=== PATIENT | female | born 1930 | race Caucasian/White ===

== ENCOUNTER 2016-08-04 01:10 | Inpatient (IN) | payer MEDICARE, BC ==
[~2016-08-04] VITALS: Ht 160 cm; Wt 75.3 kg
--- NOTE | ~2016-08-04 | ECH ---
Transthoracic Echocardiography Report (TTE) Demographics Patient Name SAUL BETTENCOURT Date of Study 08/05/2016 Patient Number [id number] Visit Number [id number] Date of 1930 Room Number 311 Accession Number [id number] Gender Female Age 85 year(s) Referring Albinjnenie Mckeon Ana Support Representative Arelis Diaz [facility] Physician Patti Mckeon Physician Interpreting Fabien Diaz MD Psychiatric Social Worker Physician Supervising Ordering Physician Fernando Mckeon MD/MLP Nurse Stress General Service Technician Conclusions Summary Technically adequate exam. The estimated left ventricular ejection fraction is 60%. Mild concentric left ventricular hypertrophy. The left atrium is mildly dilated by LA volume index measurement. Mild mitral regurgitation by color Doppler. There is mild aortic regurgitation by color Doppler. Moderate tricuspid regurgitation by color Doppler. There is moderate pulmonary hypertension. The pulmonary pressure (RVSP) is 50 mmHg. Trivial pulmonic valve regurgitation by color Doppler. Procedure Type of Study TTE procedure:Echo Complete SF. Procedure Date Date: 08/05/2016 Start: 08:21 AM Technical Quality: Adequate visualization Indications:Elevated Troponin. Additional Indications:elevate BNP Appropriate Use Criteria: 9 Height: 63 inches Weight: 149 pounds BSA: 1.71 m Rhythm: Within normal limits HR: 93 bpm BP: 129/90 mmHg M-Mode/2D Measurements LV Diastolic Dimension: 3.93 cm LV Systolic Dimension: 2.77 cm LV Septum Diastolic: 1.05 cm LV PW Diastolic: 1.03 cm AO Root Dimension: 2.34 cm Cardiac Output: 4.88 l/min LA Dimension: 3.38 cm Cardiac Index: 2.85 l/min*m RV Diastolic Dimension: 2.92 cm LA volume index: 36 ml/m LVOT: 1.89 cm LVOT VTI: 18.73 cm RV Base: 2.7 cm LV Stroke volume: 52.52 ml RV Mid: 2.2 cm LV Stroke volume index: 30.71 ml/m RV Length: 5.8 cm TAPSE: 2.9 cm Doppler Measurements AV Peak Velocity: 1.67 m/s MV Peak E-Wave: 0.7 m/s AV Peak Gradient: 11.16 mmHg MV Peak A-Wave: 0.88 m/s AV Mean Gradient: 5.97 mmHg MV E/A Ratio: 0.79 LVOT Peak Velocity: 1.38 m/s MV P1/2t: 59.3 msec AV Area (Continuity):1.8 cm AV P1/2t: 410.2 msec MV Deceleration Time: 219.6 msec TR Velocity:3.36 m/s MV Area (PHT): 3.71 cm TR Gradient:45.08 mmHg PV Peak Velocity: 1.01 m/s Estimated RAP:5 mmHg PV Peak Gradient: 4.06 mmHg Estimated RVSP: 50 mmHg Estimated PASP: 50.08 mmHg E' Septal Velocity: 0.09 m/s A' Septal Velocity: 0.11 m/s E' Lateral Velocity: 0.12 m/s A' Lateral Velocity: 0.16 m/s RA Area: 15.08 cm Findings Left Ventricle The left ventricle is normal in size . Mild concentric left ventricular hypertrophy. Diastolic assessment reveals normal relaxation. Right Ventricle Normal right ventricle structure and function. Left Atrium The left atrium is mildly dilated by LA volume index measurement. Right Atrium Normal right atrial size. Mitral Valve Normal mitral valve structure and function. Mild mitral regurgitation by color Doppler. Aortic Valve Normal aortic valve structure and function. There is mild aortic regurgitation by color Doppler. Tricuspid Valve Normal appearing tricuspid valve. Moderate tricuspid regurgitation by color Doppler. There is moderate pulmonary hypertension. The pulmonary pressure (RVSP) is 50 mmHg. Pulmonic Valve Normal pulmonic valve structure and function. Trivial pulmonic valve regurgitation by color Doppler. Pericardial Effusion No evidence of pericardial effusion. Miscellaneous Visualized portions of the aortic root and ascending aorta appear normal in size. Pleural Effusion No evidence of pleural effusion. Signature
--- NOTE | ~2016-08-04 | CO ---
ADMIT: 08/04/2016 RM/LOC: 311 [facility] MR#: [id number] [address] [address] RUTSAUL CRANE [address] [place] [address] Consultation SEX: F AGE: 85 : 1930 DATE OF CONSULTATION: 08/04/2016 ATTENDING PHYSICIAN: Bong Escobedo CONSULTING PHYSICIAN: Jason Sanchez MD REASON FOR CONSULTATION: Obstructing right ureteral calculus, right hydronephrosis, urinary tract infection, pyelonephritis, and sepsis. HISTORY OF PRESENT ILLNESS: The patient is a pleasant 85-year-old white female. Majority of history is obtained from daughter and as the patient is somewhat sedate and incoherent right now. The patient presented to outside facility yesterday at approximately 06:00 in the evening with right flank pain. During the course of that evaluation, CT scan demonstrated a 5 mm distal ureteral stone on the right with moderate to severe hydronephrosis. At that time, lactic acid was 6.8, white blood cell count was around 2000. Given the concern for sepsis, the patient was transferred over here for continued ICU monitoring and urologic intervention. Upon arrival to our facility, repeat labs were performed, serum chemistry study shows a creatinine of 1.4. White blood cell count 15.4. INR 1.7. Urine and blood cultures were pending. She has been administered Rocephin. She is also going to be started on vancomycin. The patient's states that recently she had been in her regular state of health. On Thursday, there was no unusual fevers or chills. She was complaining of some possible vague abdominal pain, but nothing severe, symptoms really started yesterday at approximately 06:00 p.m., prompting a visit to the emergency room up in [place]. The patient has had periodic urinary tract infection over the years, maybe at most one or two each year. She has never had an episode of pyelonephritis. There has been no hematuria. No obvious history of stone disease. The patient does have a history of left ureteral injury at the time of excision of ovarian cyst at the age of 28 this was repaired. does state that they know that her left kidney was slightly smaller than the right. I have spoken with Dr. Escobedo. The patient is currently being started on Levophed. She is not a good candidate for general anesthesia to facilitate stent placement. I think given the acuity and the critical nature of her situation, I would recommend decompression of the right collecting system with placement of a percutaneous nephrostomy tube. Risks and benefits have been discussed with the family to include complications with the procedure itself, bleeding, worsening, infection, potential need for secondary procedures to address the stone once the patient's clinical status is stabilized. They voiced understanding and wished to proceed at this time. PHYSICAL EXAMINATION: GENERAL: The patient is somnolent, does not provide any history. VITAL SIGNS: T-current is 100.8, blood pressure systolic 80s, heart rate in the one teens. Urine is clear. ABDOMEN: Soft. BACK: Mild right-sided costovertebral angle tenderness. ADMIT: 08/04/2016 RM/LOC: 311 [facility] MR#: [id number] [address] [place] [id number] SAUL BETTENCOURT [address] [place] [address] Consultation SEX: F AGE: 85 : 1930 LABORATORY DATA: As stated above. ASSESSMENT: Obstructing right ureteral calculus with associated urinary tract infection, pyelonephritis, hydronephrosis, and sepsis. Given the acuity of the situation and the fact that the patient is unstable for OR, I recommended placement of a percutaneous nephrostomy tube. The plan has been discussed with Dr. Escobedo as well as Dr. John, who will be placing the percutaneous nephrostomy tube. Dr. John is aware of the INR of 1.7, although, the patient is not on any anticoagulants at this time. PLAN: 1. Place a right-sided percutaneous nephrostomy tube. 2. Agree with broad-spectrum antibiotic coverage. 3. Once the patient's clinical status stabilizes, most likely we will reassess with a repeat renal colic CT scan. If the distal ureteral calculus is still present at that point, would consider ureteroscopy laser lithotripsy stent placement and removal of percutaneous nephrostomy tube. Jason Sanchez MD/ kayla JOB #: [id number] CC: Bong Escobedo, Attending Physician Mike Johnson, Family Physician
--- NOTE | 2016-08-04 07:05 | ER ---
ADMIT: 08/04/2016 RM/LOC: 311 [facility] MR#: [id number] [facility]#: [id number] [address] [address] SAUL BETTENCOURT [facility] [address] [place] [address] Emergency Room Report SEX: F AGE: 85 : 1930 DATE: 08/04/2016 CHIEF COMPLAINT: Right flank pain. HISTORY OF PRESENT ILLNESS: The patient is an 85-year-old female transferred from [facility] after presenting with 12-hour history of increasing right flank pain associated with nausea, fevers. Denies any significant dysuria or prior history of ureteral stone or pyelonephritis. CT at [place] showed obstructive uropathy right distal ureter with 5 mm stone and nonobstructive kidney stones, bilateral kidneys, 1+ leukocyte esterase, low white count. Given 1 g Rocephin IV piggyback after Dr. Johnson discussed case with Dr. Sanchez. PAST MEDICAL HISTORY: ILLNESSES: Type 2 diabetes, hypertension, kidney stones, UTI, ataxia, CVA, hyperlipidemia, diverticulosis, essential tremor, chronic low back pain, hypothyroidism, tubular adenoma. OPERATIONS: Appendectomy, hysterectomy, T and A, ureteral reconstruction, adhesiolysis. ALLERGIES: MULTIPLE, PLEASE SEE NURSE'S MAR. MEDICATIONS: Please see nurse's MAR. SOCIAL HISTORY: . Never smoked. No significant alcohol or illicit drugs. FAMILY HISTORY: Positive for abdominal aortic aneurysm in father. REVIEW OF SYSTEMS: A 12-point review of systems negative for all other systems, illnesses, or operations except as outlined above. PHYSICAL EXAMINATION: VITAL SIGNS: Temp 100.3, pulse 108, respirations 26, BP 116/77, SaO2 of 91%. Weight 74 kilos. GENERAL: Nontoxic, non-diaphoretic without jaundice or icterus. HEENT: Normocephalic. No evidence of epistaxis, rhinorrhea, or otorrhea. NECK: Supple without lymphadenopathy or thyromegaly. CHEST: Clear. Breath sounds equal. HEART: Tachycardic, regular without murmur, gallop, or edema. ABDOMEN: Soft, minimally tender right lower quadrant without mass or megaly. Bowel sounds hypoactive. BACK: Erect. No CVA tenderness. EXTREMITIES: No evidence of Homans sign, synovitis, or dermatitis. NEURO: EOMI. PERRLA. No difficulty speaking. Gait not assessed. MEDICAL DECISION MAKING: The patient is a difficult venous access though, two IVs were initiated as well as fluid bolus. Pressure has been maintained well throughout despite having lactic 6.4 in [place]. Chest x-ray, no acute findings. Reviewed CT that does confirm distal right ureteral stone with moderate hydroureter. WBC 15.4 left shift, platelets 111, creatinine 1.3. ADMIT: 08/04/2016 RM/LOC: 311 [facility] MR#: [id number] [address] [place] [phone] SAUL BETTENCOURT [address] [place] [address] Emergency Room Report SEX: F AGE: 85 : 1930 Lactic pending, procalcitonin pending. Blood cultures x2 pending. EKG shows sinus tachycardia without ST-T or Q-wave change. Chest x-ray, no acute findings. Discussed findings with Dr. Escobedo, who agreed and gave orders to nursing staff. DIAGNOSES: 1. Obstructive uropathy with pyelonephritis and distal right ureterolithiasis. 2. Moderate sepsis syndrome. RECOMMENDATION: Admit inpatient telemetry for Dr. Escobedo. ADMISSION AND DISCHARGE CONDITION: Fair. Chad Du MD/ kayla JOB #: [id number] CC: Bong Escobedo MD, Attending Physician Mike Johnson MD, Family Physician Milagro Callahan MD
--- NOTE | 2016-08-05 14:40 | CO ---
ADMIT: 08/04/2016 RM/LOC: 311 [facility] MR#: [id number] [address] [address] SAUL SUAREZ [address] [place] [address] Consultation SEX: F AGE: 85 : 1930 DATE OF CONSULTATION: 08/04/2016 ATTENDING PHYSICIAN: Bong Escobedo CONSULTING PHYSICIAN: Ankita Clark APRN TIME IN: 1540 hours. TIME OUT: 1625 hours. REASON FOR CONSULTATION: Supportive care consultation was requested by Dr. King for discussion of goals for care and code status. HISTORY OF PRESENT ILLNESS: Saul is a delightful 85-year-old, female with history of diabetes as well as left renal issues from a ureteral injury that occurred during ovarian surgery many years ago. She has been living in [place] with her , however, presented to the [facility] last evening complaining of severe right-sided pain. Evaluation discovered a right ureteral stone with severe hydronephrosis. She met sepsis criteria. She was transferred to [facility] for further evaluation and treatment. Today, she did go to for nephrostomy tube placement. Postoperatively, she has been experiencing severe pain as well as increasing oxygen and is currently on 15 L non-rebreather mask. The patient's nurse did have a discussion with the patient and family regarding their wishes should the oxygen needs continued to rise. She did ask the patient and family about BiPAP and intubation. There were some questions regarding this. Therefore, Dr. King did request the supportive care consultation be obtained to meet with the patient and family. In terms of advanced directives, the patient's next of kin medical decision maker is her , Chito Suarez, whose phone number is #[phone] and [phone]. We did not have any advanced directives on file. The patient is a full code status. Symptomatically, she is complaining of significant right-sided pain over the right lateral abdomen and flank. She states that her pain medication has relieved the pain somewhat. She denies other physical symptoms at this time. She does appear weak and slightly debilitated. PAST MEDICAL HISTORY: Diabetes mellitus, skin cancer, hypothyroidism, left kidney problems secondary to ureteral injury after an ovarian surgery, sciatica, essential tremor, ataxia, hypertension. PAST SURGICAL HISTORY: Hysterectomy, ovarian cystectomy, right total knee arthroplasty, cataract surgery, ureteral reconstruction, and adhesiolysis. ALLERGIES: THE PATIENT IS ALLERGIC TO PENICILLIN. CURRENT MEDICATIONS: Please see the patient's MAR for specific routes and ADMIT: 08/04/2016 RM/LOC: 311 [facility] MR#: [id number] [address] [address] SAUL [address]Z [address] [place] [address] Consultation SEX: F AGE: 85 : 1930 dosages. Her current medications are as follows: 1. Vancomycin. 2. Senokot. 3. Rocephin. 4. Benadryl. 5. Reglan. 6. Narcan. 7. Dilaudid. 8. Vitamin D. 9. Inderal. 10.Zestril. 11.Catapres. 12.Norvasc. 13.Symmetrel. 14.Normal saline. 15.Glutose. 16.Glucagon. 17.D5 normal saline. 18.D50. 19.NovoLog. 20.Nitro-Bid. 21.Levophed. 22.Morphine. 23.Maalox. 24.Tylenol. 25.Nitrostat. 26.Surfak. SOCIAL HISTORY: The patient is . She was living at home prior to admission. She does not use alcohol or tobacco. She is retired. FAMILY HISTORY: Her father is and had an AAA as well as lung cancer and heart failure. Her mother also had heart failure. FUNCTIONAL REVIEW: Prior to her hospital stay, she was living at home. She could perform ADLs independently but due to an essential tremor and ataxia, her reports that she spent a large portion of her day in bed. Her palliative performance scale prior to admission was around 60%. Currently, she is in bed. She is requiring pretty much total care. Her intake is reduced. She is tired. Her current palliative performance scale is 30%. REVIEW OF SYSTEMS: A 10-point review of systems was completed and other than those pertinent positives and negatives mentioned the HPI, it is negative. PHYSICAL EXAMINATION: GENERAL: The patient is examined in the bed. She is in no acute distress. VITAL SIGNS: Temperature 99.3, pulse 89, respirations 21, blood pressure 92/44, oxygen 93% on 10 L non-rebreather mask. ADMIT: 08/04/2016 RM/LOC: 311 [facility] MR#: [id number] [address] [place] [id number] SAUL SU[address]Z [address] [place] [address] Consultation SEX: F AGE: 85 : 1930 HEENT: Head is normocephalic. Pupils are 3 mm bilaterally and brisk. Oral mucosa pink and moist with fair dentition. NECK: Supple. RESPIRATORY: Respirations are equal and nonlabored. LUNGS: Diminished throughout. CARDIOVASCULAR: Rate rhythm regular without murmurs, rubs, or gallops. 1+ bilateral lower extremity edema noted. GASTROINTESTINAL: Soft and nontender. Bowel sounds are positive. GENITOURINARY: She does have a nephrostomy drain noted that is draining serosanguineous drainage. MUSCULOSKELETAL: Generalized weakness. No obvious joint deformities. NEUROLOGIC: Fatigued, but oriented x3. PSYCHIATRIC: Calm and cooperative. No agitation or delirium noted. IMPRESSION: 1. Physical debility. 2. Right abdominal/flank pain. 3. Malaise. 4. Fatigue. 5. Right ureteral stone. 6. Right hydronephrosis. 7. Pyelonephritis. 8. Sepsis. 9. Diabetes mellitus. 10.Palliative Care. 11.The patient is a full code. PLAN: 1. I was able to meet with the patient as well as her and daughter at the bedside. We reviewed her overall status and goals for the time ahead. She is hopeful for ongoing improvement through this acute illness. She understands that she is critically ill. We did discuss code status including the burden versus benefit of full code versus do not resuscitate/do not intubate status. The patient states that she would want to go through resuscitation including intubation; however, she would not want to be kept alive on a breathing machine long-term. Her states that this aligns with what she has stated previously. At this point, she directs full code status but agrees to ongoing discussions regarding goals for care pending her status in the time ADMIT: 08/04/2016 RM/LOC: 311 [facility] MR#: [id number] [address] [place] [phone] SAUL SUAREZ [address] [place] [address] Consultation SEX: F AGE: 85 : 1930 ahead. 2. The patient's pain is currently being controlled with Dilaudid and she seems to have some relief from this. I will defer to PCP for medication management of her pain. 3. We will continue to follow along in the care of this patient, assist with goals for care pending her status. 4. We would like to thank Dr. Knig for the invitation to participate in this patient's care. Total consultation time was 45 minutes from 1540 hours to 1625 hours with 20 minutes from 1545 hours to 1610 hours spent [id number] with the patient and family discussing goals for care and providing counseling and support. We will continue to follow. Ankita Clark APRN/ kayla JOB #: [id number] CC: Bong Escobedo, Attending Physician Mike Johnson, Family Physician
--- NOTE | 2016-08-13 15:07 | CO ---
ADMIT: 08/04/2016 RM/LOC: 311 [facility] MR#: [id number] [address] [address] RUT SAUL D [address] [place] [address] Consultation SEX: F AGE: 85 : 1930 DATE OF CONSULTATION: 08/04/2016 ATTENDING PHYSICIAN: Bong Escobedo CONSULTING PHYSICIAN: Cam Armstrong MD REASON FOR CONSULTATION: Elevated BNP, shortness of breath, and edema on chest x-ray. HISTORY OF PRESENT ILLNESS: The patient is a pleasant 85-year-old, female with no known history of coronary artery disease. We have seen her in the past in her hometown of [place] for hypertension. Medications were adjusted and as of June, she was to come back on a p.r.n. basis. Unfortunately yesterday, she developed some abdominal flank discomfort on the right. This became so severe, she ended up in the emergency room at [place]. She was diagnosed with a right ureteral stone along with hydronephrosis. There was concern for sepsis and therefore, she was transferred down to [facility] for further evaluation and treatment. She denies any chest pain, tightness, or heaviness. She does have some shortness of breath right now, but has not had any at home. She states this comes and goes, but is very mild. She has some left lower extremity edema. This is chronic for her and no worse due to a history of a DVT in the past. She denies any palpitations. She denies any recent syncope or presyncope. She has had some fevers while here. PAST MEDICAL HISTORY: Hypertension, type 2 diabetes, history of DVT, cataracts, essential tremor, sciatica, mild mitral regurgitation per echocardiogram, history of skin cancer, and hypothyroidism. FAMILY HISTORY: Positive for dad, who had abdominal aortic aneurysm and lung cancer and CHF. Mom had CHF. Mom also had a history of a CVA. Dad also had a history of a CVA. She had no history of premature coronary artery disease in her family. SOCIAL HISTORY: She is . Her and daughter in the room with her today and her sister was in also. 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 No history of illicit drug use, alcohol use, or tobacco abuse. REVIEW OF SYSTEMS: A 10-point review of systems reviewed and negative except per HPI and past medical history. MEDICATIONS: That she is taking include: 1. Amlodipine 10 mg daily. 2. Aspirin 81 mg daily. 3. B complex daily. 4. Clonidine 0.2 mg b.i.d. 5. Vitamin D3 at 2000 international units daily. 6. Furosemide 20 mg as needed. 7. Hydrocodone 7.5 mg half tab every four hours. ADMIT: 08/04/2016 RM/LOC: [address] [place] [address] MR#: [id number] [address] [place] [id number] SAUL BETTENCOURT [address] [place] [address] Consultation SEX: F AGE: 85 : 1930 8. Lisinopril 40 mg daily. 9. Metformin ER 500 mg b.i.d. 10.Senna Lax daily. 11.Propranolol ER 60 mg daily. 12.Spironolactone 12.5 mg daily. ALLERGIES: SHE IS ALLERGIC TO CIPRO, ELAVIL, ERYTHROMYCIN, FELDENE, GUAIFENESIN, MACRODANTIN, MEVACOR, MOTRIN, NALFON, NEURONTIN, PAMELOR, PENICILLIN, PRAVACHOL, SULFA, ZANTAC, AND ZELNORM. PAST SURGICAL HISTORY: Hysterectomy, ovarian cystectomy, right total knee arthroplasty, cataract surgery, ureteral reconstruction and adhesiolysis. Surgical history taken from old records. PHYSICAL EXAMINATION: Per Dr. Armstrong: VITAL SIGNS: Temp 99.3, pulse 89, respirations 21, blood pressure 92/44, O2 saturation 93%. GENERAL: Moderate distress. SKIN: [place], warm and dry. EYES: Sclerae clear. No xanthelasmas. ENT: On non-rebreather for oxygen, dry mucous membranes. CHEST: Respirations are even and unlabored. Lungs, coarse breath sounds. HEART: Regular rate and rhythm. Normal S1, S2. No murmurs, rubs or gallops. ABDOMEN: Obese and tender. MUSCULOSKELETAL: Gait is normal. EXTREMITIES: Mild edema bilaterally. PSYCHIATRIC: Alert and oriented. Mood and affect are appropriate. DIAGNOSTICS: Echocardiogram has been ordered, but has not yet been done. ProBNP of 33,271. Chest x-ray shows mild cardiomegaly with mild central pulmonary vascular congestion, possible mild left basilar atelectasis or developing small left-sided pleural effusion. Lactic acid is 5.4, INR is elevated at 1.7. Sodium of 142, potassium 3.3 with a chloride of 112, carbon dioxide 15, BUN of 40, glucose 233, creatinine 1.4. Calcium 8.1, mag of 1.3. CK of 44, MB of 0.6 with troponin of 0.132, CRP of 1.41. Blood cultures were positive for gram negative rods. ADMIT: 08/04/2016 RM/LOC: 311 [facility] MR#: [id number] [address] [place] [phone] SAUL BETTENCOURT [address] [place] [address] Consultation SEX: F AGE: 85 : 1930 ASSESSMENT: Per Dr. Armstrong: 1. Sepsis. 2. Bacteremia. 3. History of hypertension. 4. Diabetes. 5. Acute renal failure. PLAN: Per Dr. Armstrong. I agree with full supportive measures. Her recent echocardiogram showed a normal ejection fraction. I agree with IV fluid and pressors and we will continue to follow. We will continue to monitor symptoms and diagnostics, amend our plan accordingly. Thank you for allowing us to participate in the care of this patient. HARSH Herrera / Cam Armstrong MD / kayla JOB #: [id number] CC: Bong Escobedo, Attending Physician Mike Johnson, Family Physician
[2016-08-14] MEDS ORDERED: LASIX DPS20 MG PO (10:33)
[2016-08-14] MEDS ORDERED: CATAPRES-DPS0.2 MG PO (10:33)
[2016-08-14] MEDS ORDERED: NORVASC DPS10 MG PO (10:33)
[2016-08-14] MEDS ORDERED: ASA CHILDREN'S81 MG PO (10:33)
[2016-08-14] MEDS ORDERED: SYMMETREL-DPS100 MG PO (10:33)
[2016-08-14] MEDS ORDERED: LISINOPRIL40 MG PO (10:34)
[2016-08-14] MEDS ORDERED: NORCO 7.5-3251 EACH PO (10:34)
[2016-08-14] MEDS ORDERED: GLUCOPHAGE-DPS500 MG PO (10:34)
[2016-08-14] MEDS ORDERED: INDERAL-DPS40 MG PO (10:35)
[2016-08-14] MEDS ORDERED: SENOKOT DPS8.6 MG PO (10:36)
[2016-08-14] MEDS ORDERED: SPIRONOLACTONE50 MG PO (10:36)
[2016-08-14] MEDS ORDERED: VITAMIN B COMP1 EACH PO (10:37)
[2016-08-14] MEDS ORDERED: XARELTO15 MG PO (10:37)
[2016-08-14] MEDS ORDERED: VITAMIN D-32000 UNI1 PO (10:37)
[2016-08-14] MEDS ORDERED: LORTAB 7.5-3251 EACH PO (10:38)
[2016-08-14] MEDS ORDERED: LEVAQUIN DPS500 MG PO (10:38)
[2016-08-14] MEDS ORDERED: TRIMETHOPRIM100 MG PO (10:38)
[2016-08-14] MEDS ORDERED: MYCELEX TROCHE10 MG PO (10:39)
[2016-08-14] MEDS ORDERED: PYRIDIUM100 MG PO (10:39)
--- NOTE | 2016-08-30 11:46 | HP ---
ADMIT: 08/04/2016 RM/LOC: 311 [facility] MR#: [id number] [address] [address] YULIYA BETTENCOURTJENNIFER Perez [address] [place] [id number] History and Physical SEX: F AGE: 85 : 1930 DATE OF SERVICE: CHIEF COMPLAINT: Right-sided pain. 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 She states that she felt fine until approximately noon yesterday when she started having pain on her right side. It worsened throughout the day to the point where she just could not stand it, went to the emergency room, where she was diagnosed with a right ureteral stone and sepsis, was subsequently transferred to [facility] for further workup and stabilization. Apparently, Dr. Johnson had already called and consulted with Dr. Callahan, who is planning on seeing the patient this a.m. She does have kidney problems previously. In fact, she states that her left kidney is smaller than the right and was apparently related to some sort of complication during an ovarian cystectomy and has had ureteral reconstruction on that side. She does occasionally get bladder infections and has had one in the not too distant future, but her could not remember exactly when. PAST MEDICAL HISTORY: Remarkable for diabetes mellitus, skin cancer, hypothyroidism, left kidney problems, sciatica, essential tremor, ataxia, hypertension. PAST SURGICAL HISTORY: Include hysterectomy, ovarian cystectomy, right total- knee arthroplasty, cataract surgery, ureteral reconstruction and adhesiolysis. CURRENT MEDICATIONS: Include: 1. Amlodipine 10 mg daily. 2. Aspirin 81 mg daily. 3. B complex daily. 4. Clonidine 0.2 mg b.i.d. 5. Vitamin D3 at 2000 international units daily. 6. Furosemide 20 mg as needed. 7. Hydrocodone 7.5 mg half tab every 4 hours. 8. Lisinopril 40 mg daily. 9. Metformin ER 500 mg b.i.d. 10.Senna Lax daily. 11.Propranolol ER 60 mg daily. 12.Spironolactone 12.5 mg daily. ALLERGIES AND INTOLERANCES: Include Cipro, Elavil, erythromycin, Feldene, guaifenesin AC, Macrodantin, Mevacor, Motrin, Nalfon, Neurontin, Pamelor, penicillin, Pravachol, sulfa, Zantac, and Zelnorm. FAMILY HISTORY: Father is , had abdominal aortic aneurysm, lung cancer, and CHF. Mother with CHF. SOCIAL HISTORY: Does not smoke or drink alcohol. She is retired. ADMIT: 08/04/2016 RM/LOC: 311 [facility] MR#: [id number] [address] [address] SAUL BETTENCOURT [address] [place] [address] History and Physical SEX: F AGE: 85 : 1930 REVIEW OF SYSTEMS: GENERAL: She has had fever and chills. HEENT: No headaches, blurred vision, double vision. CARDIAC: No chest pains. PULMONARY: No shortness of breath. GASTROINTESTINAL: No nausea, vomiting. : No dysuria, urgency, or frequency. ENDOCRINE: No polyuria or polydipsia. PSYCH: No depression. All others are negative. OBJECTIVE: VITAL SIGNS: Blood pressure is 133/83, pulse 106, respirations 30, temp is 101. GENERAL: She is in no acute distress. She is alert, oriented. EYES: Pupils are reactive. Conjunctivae are clear. NECK: Soft and supple. LUNGS: Clear to auscultation with normal respiratory effort. HEART: Regular rate and rhythm. ABDOMEN: Soft. It is exquisitely tender in the right colic gutter. Some right CVA tenderness also noted. EXTREMITIES: No cyanosis, no clubbing. No significant edema. SKIN: No rashes. NEUROLOGIC: Cranial nerves II through XII are grossly intact except for the essential tremor. LAB AND X-RAY DATA: Of course, the CT scan shows a right ureteral stone. Lactic acid was 4.0. Sodium 142, potassium 3.3, chloride 112, CO2 of 15, BUN 40, creatinine 1.4, glucose 233, calcium 8.1, phosphorus 1.7. Total bilirubin is 0.5, total protein 6.4, albumin 3.1, alkaline phosphatase 104, AST 55, ALT 38, magnesium 1.3, CK 44, MB 0.6, relative index 1.4. Troponin I is 0.132, CRP was 1.41, INR is 1.71, procalcitonin is 126.56. White count 15,400. Hemoglobin 14.3, platelets 111,000. ASSESSMENT: ADMIT: 08/04/2016 RM/LOC: 311 [facility] MR#: [id number] [address] [place] [address] SAUL BETTENCOURT [address] [place] [address] History and Physical SEX: F AGE: 85 : 1930 1. Right ureteral stone. 2. Sepsis. 3. Acute kidney injury. 4. Hypokalemia. 5. Hypomagnesemia. 6. Hypertension. 7. Essential tremor. PLAN: We will admit to the ICU per sepsis protocol, has already had her fluid resuscitation done in the emergency room. Dr. Callahan has already added Rocephin. We will broaden coverage with vancomycin until we get her cultures back and we will continue IV fluids and wait for Urology input. Bong Escobedo MD/ kayla JOB #: [id number] CC: Bong Escobedo, Attending Physician Mike Johnson, Family Physician
--- NOTE | 2016-09-02 10:07 | OR ---
ADMIT: 08/04/2016 RM/LOC: 630 [facility] MR#: [id number] [facility]#: [id number] [address] [address] RUTSAUL CRANE [address] [place] [address] Operative/Delivery Room Report SEX: F AGE: 85 : 1930 SURGERY DATE: 08/12/2016 SURGEON: Jason Sanchez MD PREOPERATIVE DIAGNOSES: 1. Right ureteral calculus, status post percutaneous nephrostomy tube. 2. Urinary tract infection, pyelonephritis, and sepsis are resolving. POSTOPERATIVE DIAGNOSES: 1. Right distal ureteral calculus which she passed spontaneously into the bladder. 2. Urinary tract infection, pyelonephritis, and sepsis-resolving. PROCEDURE: 1. Cystoscopy with retrieval of stone from bladder. 2. Right retrograde pyelogram. 3. Right ureterorenoscopy. 4. Right ureteral stent placement. 5. Removal of right-sided percutaneous nephrostomy tube. ANESTHESIA: General. INDICATIONS: The patient is a white female, who presented with severe sepsis, underwent percutaneous nephrostomy tube. She has improved clinically. She presents today for definitive management of the stone as well as removal of percutaneous nephrostomy tube. PROCEDURE IN DETAIL: The patient was taken to OR #5, placed on the table in supine position. After adequate anesthesia, transferred to dorsal lithotomy position, prepped and draped in the usual fashion. A time-out was taken for the patient's name, date of , planned procedure, preop antibiotics, and allergies. A 22-Lithuanian cystoscope was advanced to the level of bladder. There was some catheter trauma along the posterior wall. Urethra was unremarkable. Ureteral orifice was visualized in all positions. Just outside the right ureteral orifice is a stone, this was retrieved and sent for stone analysis. It was consistent with spontaneous passage of her ureteral calculus into the bladder. An 8-Lithuanian cone-tipped catheter was used to create a retrograde pyelogram. The ureter is smooth. There was no significant hydronephrosis. Caliceal structures were well delineated. At this point, an angle tip Glidewire was advanced to the upper collecting system. Once this was accomplished, I did ask Nursing to remove the percutaneous nephrostomy tube which was done without difficulty. At this point, I did go ahead and secured the guidewire as a safety wire. Using a secondary guidewire in a train-track technique, a semirigid ureteroscope was advanced into the distal ureter. This was advanced all the ADMIT: 08/04/2016 RM/LOC: 630 [facility] MR#: [id number] [address] [address] SAUL BETTENCOURT [address] [place] [address] Operative/Delivery Room Report SEX: F AGE: 85 : 1930 [address] to the ureteropelvic junction. The scope was withdrawn slowly. There was some inflammation through the distal ureter, where the stone had likely been sitting at the time of diagnosis. There were no other stones noted. I did leave the secondary guidewire indwelling and a flexible ureteroscope was advanced over the indwelling guidewire into the upper collecting system. Caliceal structures were individually identified and inspected. No additional stone debris was noted. The percutaneous nephrostomy tube tract was noted, and there was no evidence of bleeding. The scope was slowly withdrawn over the entire course of the ureter and no additional findings aside from distal ureteral inflammation was noted. I did elect to place a stent. I felt that this would help nephrostomy tube tract close more quickly, and I was somewhat concerned about adequate drainage of the collecting system with inflammation in the distal ureter. The indwelling safety wire was back-loaded through the cystoscope. Cystoscope was advanced to the level of bladder. Under direct fluoroscopic visualization, a 6-Lithuanian, 24 cm double-J stent was placed. With the removal of guidewire, we had a nice curl within the renal pelvis and nice curl within the urinary bladder. At this point, the bladder was decompressed. Scope was withdrawn. The patient was taken out of the dorsal lithotomy position and extubated uneventfully and transferred to recovery room in stable condition. She will be transferred back to the floor for continued inpatient management. If doing well, probably could go home tomorrow. Jason Sanchez MD/ kayla JOB #: [id number] CC: Bong Escobedo, Attending Physician Mike Johnson, Family Physician
--- NOTE | 2016-09-15 16:45 | CO ---
ADMIT: 08/04/2016 RM/LOC: 311 [facility] MR#: [id number] [address] [address] SAUL BETTENCOURT [address] [place] [address] Consultation SEX: F AGE: 85 : 1930 DATE OF CONSULTATION: 08/08/2016 ATTENDING PHYSICIAN: Bong Escobedo CONSULTING PHYSICIAN: Jeanine Lin MD REASON FOR CONSULTATION: Hypoxemia. HISTORY OF PRESENT ILLNESS: The patient is a pleasant 85-year-old female, who was admitted with severe sepsis and urinary tract infection. She was also found to have DVT in her legs. In the process of fluid resuscitation, she has developed some fluid overload and Cardiology is following, and has been diuresing. She is requiring oxygen between 3 to 6 L but is quite comfortable. There is no prior history of COPD, smoking, or chronic lung disease such as asthma or recurrent pneumonias. She currently has no chest pain or cough. No sputum production. She has no fevers, chills, or sweats currently. Her only complaint currently is of some mild abdominal pain. 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 Arterial blood gases did not reveal any CO2 elevation. Chest x-ray shows some atelectasis and small pleural effusions. With her DVT, a CT angiogram of the chest was performed and this did not reveal any evidence of pulmonary emboli, but did reveal fairly significant bilateral lower lobe atelectasis with some small pleural effusions and a suggestion of fluid overload. Currently, she is in bed comfortable, no significant dyspnea, but still complains of some abdominal pain. There are no fevers, chills, or sweats currently. PAST MEDICAL HISTORY: 1. Hypertension. 2. Type 2 diabetes. 3. History of DVT. 4. Cataracts. 5. Essential tremor. 6. Mild mitral regurgitation. 7. Skin cancer. 8. Hypothyroidism. 9. Sciatica. SURGICAL HISTORY: Includes: 1. Ovarian cystectomy. 2. Hysterectomy. 3. Total knee on the right. 4. Ureteral reconstruction. 5. Cataracts surgery. FAMILY HISTORY: Reviewed. Dad, abdominal aortic aneurysm, lung cancer, CHF. Mom has a history of CVA as well as dad. SOCIAL HISTORY: . Nonsmoker. 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 MEDICATIONS: Medications currently from home are reviewed and current ADMIT: 08/04/2016 RM/LOC: 311 [facility] MR#: [id number] [address] [address] ASUL BETTENCOURT [address] [place] [address] Consultation SEX: F AGE: 85 : 1930 medicines are reviewed from the chart. ALLERGIES: CIPRO, ELAVIL, ERYTHROMYCIN, FELDENE, GUAIFENESIN, MACRODANTIN, MEVACOR, MOTRIN, NALFON, NEURONTIN, PAMELOR, PENICILLIN, PRAVACHOL, SULFA, ZANTAC, AND ZELNORM. REVIEW OF SYSTEMS: Ten-point was reviewed without positive except the HPI. PHYSICAL EXAMINATION: VITAL SIGNS: Temperature 99, pulse 80, respirations 20, blood pressure 110/70. HEENT: Within normal limits. NECK: No JVD or bruits. HEART: Regular rate. LUNGS: Bilateral rales at the bases. ABDOMEN: Soft. Bowel sounds positive. Nontender and nondistended. No organosplenomegaly. LABORATORY TESTING: Chest x-ray and CT angiogram as reviewed above. CBC; white count is 14,100, hemoglobin 12.6, and platelets were 111,000. Basic metabolic panel was within normal limits except for an elevated glucose. IMPRESSION: 1. Hypoxemia. I think this is multifactorial and includes bilateral basilar atelectasis which is fairly significant and contributed by her underlying abdominal pain and splinting. She has incentive spirometry, but I would like to add the EzPAP at least for the next 24 to 48 hours to see if we can help wean her oxygen. In addition, she has fluid overload and she is being diuresed. That will continue. 2. She has sepsis urinary tract, which is resolved. She had significant elevated lactic acid and had some fluid resuscitation. 3. Abdominal pain. Thank you for having me see her. We will continue to follow with you and begin therapies as noted. Jeanine Lin MD/ kayla JOB #: [id number] CC: Bong Escobedo, Attending Physician Mike Johnson, Family Physician
--- NOTE | 2016-10-12 07:44 | DS ---
ADMIT: 08/04/2016 RM/LOC: 630 [facility] MR#: [id number] ACC#: [id number] [address] [address] SAUL BETTENCOURT [address] [place] [address] Discharge Summary SEX: F AGE: 85 : 1930 ADMISSION DATE: 08/04/2016 DISCHARGE DATE: 08/13/2016 FINAL DIAGNOSES: 1. Right ureteral stone. 2. Severe sepsis secondary to E. (Escherichia) coli and UTI/pyelonephritis secondary to E. coli. 3. Acute kidney injury. 4. Hypokalemia. 5. Hypomagnesemia. 6. Hypertension. 7. Essential tremor. 8. UTI (urinary tract infection)/pyelonephritis. 9. Acute hypoxic respiratory failure. 10.Left lower extremity DVT (deep venous thrombosis). 11.Thrombocytopenia. 12.Hyponatremia. REASON FOR ADMISSION: This is an 85-year-old white female, who was transferred from [facility] for sepsis and right ureteral stone. HOSPITAL COURSE: She was admitted on 08/04/2016, started on IV Rocephin, morphine for pain control. We did blood cultures, urine culture. Her potassium was low; this was replaced through the IV. Also IV Vanco. She was admitted to the ICU because of her severe sepsis. She was hydrated with IV fluids. Urology was consulted. 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 Because of her significant right ureteral obstruction and tenuous status, we did consult Interventional Radiology, who placed a right percutaneous nephrostomy tube on 08/04/2016. Lactic acid was up to 5.4. Supportive Care was consulted. Family and patient wished to be full code. She was hydrated aggressively with IV fluids and blood pressure was maintained with pressors. Due to respiratory failure, she was subsequently placed on BiPAP. On 08/05 she was hemodynamically stable. Sats were better on BiPAP. On 08/06, she was on simple mask, O2 sats were 92%. We did start IV Lasix, we held her IV fluids. Her potassium was a little bit low, this was replaced orally. Her blood pressure had improved. On 08/07 looking a little better, still on O2 which was not her baseline. We added some IV Zithromax and incentive spirometer as well as DuoNeb treatments. She did have a left lower extremity DVT and was started on Lovenox subcu b.i.d. We subsequently discontinued her Vanco and her Zithromax, and she were placed on IV Levaquin. On 08/08 she did not really tolerate the BiPAP very well. Her sats were okay on 6 L per nasal cannula so we did discontinue the BiPAP. We added some Levemir and sliding- scale insulin. Pulmonology was consulted due to ongoing oxygen requirement. Cardiology had signed off. They recommended nebulizer treatments with EzPAP q.4 hours. She was transferred to PCU status. Supportive Care signed off. 08/09 she was down to 2 L per nasal cannula, doing much better. She had some thrush, which we treated with Mycelex Lauryn. 08/10 she was placed to telemetry. We continued to wean her O2. Her IV Lasix was discontinued. It was changed to p.o. Her Dilaudid was weaned off. She was kept n.p.o. after ADMIT: 08/04/2016 RM/LOC: 630 [facility] MR#: [id number] [address] [address] SAUL BETTENCOURT [address] [place] [address] Discharge Summary SEX: F AGE: 85 : 1930 midnight. 04/10 okay night, still in a lot of pain in the right side. On 08/12 still some pain, no new complaints, she slept okay. She underwent stent placement and ureteroscopy stone retrieval. The stone had passed into the bladder already. On 08/17 she still had some right-sided pain but better. She slept okay. We switched her over to Xarelto 15 mg b.i.d. Pulmonology felt she was stable and signed off and felt stable for discharge later that day. DISCHARGE INSTRUCTIONS: 1. Catapres 0.2 mg b.i.d. 2. Inderal LA 60 mg b.i.d. 3. Mycelex lauryn 10 mg 5 times daily. 4. Norvasc 10 mg daily. 5. Amantadine 100 mg b.i.d. 6. Vitamin D 1000 units 2 tabs daily. 7. Zestril 40 mg daily. 8. Lortab 7.5 mg 1-2 q.4 hours p.r.n. 9. Pyridium 190 mg t.i.d. p.r.n. 10.Aspirin 81 mg daily. 11.Amlodipine 10 mg daily. 12.Furosemide 20 mg daily p.r.n. 13.Lisinopril 40 mg daily. 14.Metformin 500 mg b.i.d. 15.Propranolol 60 mg b.i.d. 16.Senna 50 mg at bedtime. 17.Spironolactone 25 mg daily. 18.Vitamin B complex daily. 19.Xarelto 15 mg b.i.d. for 3 weeks then 20 mg daily. 20.Levaquin 500 mg a day for 7 days. Follow up with her primary care provider in [place] in 1 week. Follow up with Urology per their wishes. Bong Escobedo MD/ john JOB #: [id number] CC: Bong Escobedo MD, Attending Physician Mike Johnosn MD, Family Physician
== END 2016-08-13 15:30 | disposition home health service (06) | DRG 871 ==
LOC: ER 01:10 → 3ICU 02:10 → 6PED 02:10 → 3ICU 04:50 → 6PED 08-10 11:09
PROVIDERS: ADMIT Family Medicine
PROC: 0T9130Z Drainage of Left Kidney with Drainage Device, Percutaneous Approach (ICD-10-PCS; principal; 2016-08-04)
PROC: 0T768DZ Dilation of Right Ureter with Intraluminal Device, Via Natural or Artificial Opening Endoscopic (ICD-10-PCS; 2016-08-12)
PROC: BT1D1ZZ Fluoroscopy of Right Kidney, Ureter and Bladder using Low Osmolar Contrast (ICD-10-PCS; 2016-08-12)
PROC: 0TP5X0Z Removal of Drainage Device from Kidney, External Approach (ICD-10-PCS; 2016-08-12)
PROC: 0TCB8ZZ Extirpation of Matter from Bladder, Via Natural or Artificial Opening Endoscopic (ICD-10-PCS; 2016-08-12)
DX: A41.51 Sepsis due to Escherichia coli [E. coli] (principal); J96.01 Acute respiratory failure with hypoxia; N17.9 Acute kidney failure, unspecified; I50.31 Acute diastolic (congestive) heart failure; E87.0 Hyperosmolality and hypernatremia; D69.6 Thrombocytopenia, unspecified; E83.42 Hypomagnesemia; I82.542 Chronic embolism and thrombosis of left tibial vein; N13.6 Pyonephrosis; N20.2 Calculus of kidney with calculus of ureter; J98.11 Atelectasis; E11.9 Type 2 diabetes mellitus without complications; R65.20 Severe sepsis without septic shock; I51.7 Cardiomegaly; I34.0 Nonrheumatic mitral (valve) insufficiency; I10 Essential (primary) hypertension; R09.02 Hypoxemia; B37.9 Candidiasis, unspecified; R27.0 Ataxia, unspecified; B96.20 Unspecified Escherichia coli [E. coli] as the cause of diseases classified elsewhere; M54.30 Sciatica, unspecified side; E78.5 Hyperlipidemia, unspecified; E87.6 Hypokalemia; K57.90 Diverticulosis of intestine, part unspecified, without perforation or abscess without bleeding; G25.0 Essential tremor; M54.5 Low back pain; G89.29 Other chronic pain; E03.9 Hypothyroidism, unspecified; Z85.828 Personal history of other malignant neoplasm of skin; Z96.651 Presence of right artificial knee joint; Z79.82 Long term (current) use of aspirin; Z79.84 Long term (current) use of oral hypoglycemic drugs; Z86.718 Personal history of other venous thrombosis and embolism; Z87.440 Personal history of urinary (tract) infections

== ENCOUNTER 2016-09-25 08:09 | Day surgery (SDC) | payer MEDICARE, BC ==
[~2016-09-25] VITALS: Ht 160 cm; Wt 64.6 kg
[~2016-09-25 08:09] MED LIST: ASA CHILDREN'S81 MG PO; CATAPRES-DPS0.2 MG PO; GLUCOPHAGE-DPS500 MG PO; INDERAL-DPS40 MG PO; LASIX DPS20 MG PO; LEVAQUIN DPS500 MG PO; LISINOPRIL40 MG PO; LORTAB 7.5-3251 EACH PO; MYCELEX TROCHE10 MG PO; NORCO 7.5-3251 EACH PO; NORVASC DPS10 MG PO; PYRIDIUM100 MG PO; SENOKOT DPS8.6 MG PO; SPIRONOLACTONE50 MG PO; SYMMETREL-DPS100 MG PO; TRIMETHOPRIM100 MG PO; VITAMIN B COMP1 EACH PO; VITAMIN D-32000 UNI1 PO; XARELTO15 MG PO
--- NOTE | 2016-10-28 06:58 | OR ---
ADMIT: 09/25/2016 RM/LOC: [facility] MR#: [id number] [facility]#: [id number] [address] [address] SAUL BETTENCOURT [address] [place] [address] Operative/Delivery Room Report SEX: F AGE: 85 : 1930 SURGERY DATE: 09/25/2016 SURGEON: Duke Bill MD PREOPERATIVE DIAGNOSES: Abdominal pain and history of colon polyps. POSTOPERATIVE DIAGNOSES: 1. Normal appearing upper endoscopy. 2. Scattered sigmoid diverticula and small adenomatous appearing polyp in the hepatic flexure region. PROCEDURE PERFORMED: 1. EGD with biopsies. 2. Colonoscopy with cold biopsy removal of polyp in the hepatic flexure region. ANESTHESIA: Sedation. ESTIMATED BLOOD LOSS: None. DESCRIPTION OF PROCEDURE: After appropriate informed consent was obtained, the patient was brought to the endoscopy suite. IV sedation was provided. A well-lubricated endoscope was introduced and passed down the esophagus. The proximal and mid esophagus appeared normal. Distal esophagus showed no evidence of stricture or narrowing. The scope was advanced into the stomach. The gastric mucosa appeared normal throughout. The pylorus was intubated. Duodenal bulb, second and third portions of the duodenum appeared normal. The scope was then pulled back into the stomach, retroflexed revealing no hiatal hernia from below. No proximal gastritis or mass. Several biopsies were taken in the stomach. The stomach was then deflated and scope withdrawn without apparent complications. The patient tolerated the procedure well. I then proceeded with colonoscopy. Rectal exam revealed some mild hemorrhoids. No rectal masses. The scope was introduced and passed through the entire length colon. She had a very good prep. She did have some scattered sigmoid diverticula. The ileocecal valve and appendiceal orifice appeared normal. The scope was slowly and carefully withdrawn on the way out. At the hepatic flexure was a small adenomatous polyp, I removed in piecemeal fashion with several bites of cold biopsy forceps. That polyp removed. The scope was then withdrawn back down to the rectum, retroflexed revealing no rectal masses, just mild internal hemorrhoids. The patient tolerated the procedure well and was taken to the recovery room in stable condition. Duke Bill MD/ kayla JOB #: [id number] CC: Duke Bill, Attending Physician ADMIT: 09/25/2016 RM/LOC: [facility] MR#: [id number] [address] [address] SAUL BETTENCOURT [address] [place] [address] Operative/Delivery Room Report SEX: F AGE: 85 : 1930 Mike Johnson Family Physician
== END 2016-09-25 12:03 | disposition home or self-care (01) ==
LOC: SSS 08:09
DX: D12.3 Benign neoplasm of transverse colon (principal); K57.30 Diverticulosis of large intestine without perforation or abscess without bleeding; R10.13 Epigastric pain; K64.8 Other hemorrhoids; I10 Essential (primary) hypertension; E11.9 Type 2 diabetes mellitus without complications; F41.9 Anxiety disorder, unspecified; Z88.1 Allergy status to other antibiotic agents; Z88.2 Allergy status to sulfonamides; Z88.8 Allergy status to other drugs, medicaments and biological substances; Z85.828 Personal history of other malignant neoplasm of skin; Z98.49 Cataract extraction status, unspecified eye; Z90.49 Acquired absence of other specified parts of digestive tract; Z90.710 Acquired absence of both cervix and uterus; Z98.890 Other specified postprocedural states